=== PATIENT | female | born 1950 | race Caucasian/White ===

== ENCOUNTER → 2017-02-24 | Outpatient (CLI) | payer MEDICARE, OTHER ==
[~2017-02-24] MED LIST: AMLODIPINE-OLM1 EACH PO; LIPITOR40 MG PO; LISINOPRIL 5MG T5 MG PO; MELOXICAM15 MG PO; TYLENOL ES500 MG PO
--- NOTE | 2017-02-24 16:42 | RADIOLOGY REPORT PS360 ---
BONE DENSITOMETRY(HIP:LT SPINE HISTORY: POST MENOPAUSAL ORDERING PHYSICIAN: Pily Kearney MD PATIENT AGE: 66 years COMPARISON: 08/28/2010 FINDINGS: The BMD measured at the right femoral neck is 0.696 g/cm squared with a T score of -2.5. This is considered osteoporotic according to the World Health Organization criteria. Fracture risk is high. Pharmacological treatment recommended. IMPRESSION: Osteoporosis of the right hip. The been density of the hips has decreased by 15% compared to 08/28/2010. Recommend follow-up exam February 2018 to monitor response to treatment
--- NOTE | 2017-02-26 07:12 | RADIOLOGY REPORT PS360 ---
EXAM: CT LUNG LOW DOSE WO CONTRAST COMPARISON: None HISTORY: 66 year old female with greater than 30 pack-year smoking history asymptomatic ORDERING PHYSICIAN: Pily Kearney MD PATIENT AGE: 66 years TECHNIQUE: The exam was performed on a GE Light Speed [address] scanner using 2.95 mGy CTDI. A low dose helical CT CHEST was performed on a multi-detector scanner The LDCT was performed in a facility that meets the criteria for the screening program. Data regarding this exam was submitted to ACR which is an approved registry. The order for this exam indicates that it came as a result of a lung cancer screening counseling shard decision-making visit that included all the elements required of such a visit including smoking cessation. The radiologist interpreting this exam meets the [facility] criteria for the LDCT lung cancer screening program. The exam is reported using the Lung-RADS classification scale and reported to the ACR registry. NOTE: This study was performed for the specific purposes of lung cancer screening and is not an alternative to diagnostic chest CT. RADIATION DOSE: CTDI vol(CT dose Index-volume) = 2.95mG DLP (Dose Length Product) = 112.71 mGcm FINDINGS: 6 mm peribronchial nodule and a 5 mm peribronchial nodule along either 4 and millimeter peribronchial nodules in the right upper lobe centrally noncalcified. 6 mm noncalcified right lower lobe nodule posteriorly 7 mm noncalcified nodule left lower lobe. 3 mm noncalcified nodule left lower lobe laterally. Subpleural nodular density left upper lobe anteriorly 7 mm Centrilobular emphysematous changes with obstructive chronic bronchitis. Mild atelectatic or fibrotic changes in the lung bases with hyperinflation. OTHER FINDINGS: Coronary artery calcifications. Old granulomatous disease. Scattered small nodes in the axilla IMPRESSION: 1. Lung RADS Category: 3 probably benign, 2. Other findings: Centrilobular emphysema with obstructive chronic bronchitis Coronary artery disease RECOMMENDATIONS: 6 monthd LDCT follow-up
--- NOTE | 2017-03-02 12:20 | RADIOLOGY REPORT PS360 ---
DIG MAMM-SCREEN ASIF W/CAD CAD Screening COMPARISON: Digital mammograms 04/18/2012 and 08/28/2013 INDICATION: There is no personal or family history of breast cancer TECHNIQUE: Standard CC and MLO images were obtained. R2 CAD reviewed. FINDINGS: Moderate scattered fibroglandular densities are seen in both breast. There are few benign-appearing calcifications in each breast. There is no new or suspicious lesion in either breast and there are no suspicious microcalcifications. IMPRESSION: Fibrofatty parenchyma no suspicious lesion seen recommend yearly follow-up BI-RADS CATEGORY: 2_Benign RECOMMENDED FOLLOWUP: 12M 12 MONTH FOLLOW-UP (A letter has been sent to the patient regarding results of the study.)
== END ==
LOC: RAD 14:25
DX: Z87.891 Personal history of nicotine dependence (principal); F17.200 Nicotine dependence, unspecified, uncomplicated; Z12.2 Encounter for screening for malignant neoplasm of respiratory organs; Z12.31 Encounter for screening mammogram for malignant neoplasm of breast; Z78.0 Asymptomatic menopausal state; Z13.820 Encounter for screening for osteoporosis
CPT/HCPCS: G0202; G0297

== ENCOUNTER → 2017-09-05 | Outpatient (CLI) | payer MEDICARE, OTHER ==
--- NOTE | 2017-09-07 07:22 | RADIOLOGY REPORT PS360 ---
EXAM: CT LUNG LOW DOSE WO CONTRAST COMPARISON: None HISTORY: 67 year old female asymptomatic with greater than 30 pack-year smoking history, follow-up abnormal LDCT, follow-up pulmonary nodule ORDERING PHYSICIAN: Stepan Rodriguez MD PATIENT AGE: 67 years TECHNIQUE: The exam was performed on a GE Light Speed [address] scanner using 2.95 mGy CTDI. A low dose helical CT CHEST was performed on a multi-detector scanner The LDCT was performed in a facility that meets the criteria for the screening program. Data regarding this exam was submitted to ACR which is an approved registry. The order for this exam indicates that it came as a result of a lung cancer screening counseling shard decision-making visit that included all the elements required of such a visit including smoking cessation. The radiologist interpreting this exam meets the [facility] criteria for the LDCT lung cancer screening program. The exam is reported using the Lung-RADS classification scale and reported to the ACR registry. NOTE: This study was performed for the specific purposes of lung cancer screening and is not an alternative to diagnostic chest CT. RADIATION DOSE: CTDI vol(CT dose Index-volume) = 2.95mG DLP (Dose Length Product) = 111.6 mGcm FINDINGS: There are centrilobular emphysematous changes with hyperinflation and hyperattenuation of the peripheral pulmonary vessels consistent with obstructive chronic bronchitis. The previously described nodules in the central aspect of the right upper lobe are not significantly changed. A small cluster of nodules in this region the largest at 6 mm. 5 mm superior segment right lower lobe unchanged. Fissural nodule in the major fissure on the right unchanged. Semisolid 6 to 7 mm nodule in the left lower lobe unchanged No new nodules are evident. No infiltrates or effusions. Coronary artery calcifications are present. There is mild bronchial thickening. IMPRESSION: 1. Lung RADS Category: 3, probably benign 2. Other findings: Emphysema with obstructive chronic bronchitis and coronary artery disease RECOMMENDATIONS: 12-month LDCT follow-up
== END ==
LOC: RAD 08-30 13:00
DX: R91.1 Solitary pulmonary nodule (principal); Z87.891 Personal history of nicotine dependence; Z12.2 Encounter for screening for malignant neoplasm of respiratory organs; F17.200 Nicotine dependence, unspecified, uncomplicated
CPT/HCPCS: G0297

== ENCOUNTER 2017-09-24 11:41 | Inpatient (IN) | payer MEDICARE, OTHER ==
[~2017-09-24] VITALS: Ht 157.5 cm; Wt 63.6 kg
[2017-09-24 11:42] VITALS: BP 146/77
--- NOTE | 2017-09-24 11:49 | Emergency Room Report ---
History of Present Illness Time Seen by MD Brantley Presenting Problem in Triage Pt arrived: Presenting Problem: Onset of symptoms date/time:/ or onset unknown for: Treatment Prior to Arrival: F[employer] TE[employer] Provided by: Sepsis Risk Assessment: Temp: B/P: MAP: Pulse: Resp: Recent fever? Clinical Suspician of Infection? Mental Status: Sepsis Risk: Have you (or family members/close friends) recently traveled outside the [place]? If Yes, where/when: Have you had exposure to infectious disease within the past month? TB? Other? 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 Arrives via EMS with shortened and rotated hip, having received Fentanyl per EMS per their pain management protocol. She denies numbness. No back pain. Neg LOC. No neck pain. Denies prior hip intervention or injury. ALLERGIES Coded Allergies: No Known Allergies (09/24/17) Home Medications Reported Medications Atorvastatin Calcium (Atorvastatin) 40 MG PO DAILY Meloxicam (Meloxicam 15MG) 15 MG PO DAILY Acetaminophen (Tylenol XS 500MG) 500 MG PO Q6HP PRN PAIN Amlodipine Bes/Olmesartan Med (Amlodipine-Olmesartan 5-20 MG) 1 EACH PO DAILY History Medical History General CAD? No Angina: No MS: No Hypertension? Yes Hyperlipidemia? Yes CHF? No DVT? No PE? No COPD? No Asthma? No Anemia? No GERD? No Gastric ulcers? No GI Bleed? No Hernia? No Thyroid Problems? No Hypothyroidism? No CVA? No Seizures? No Diabetes? No Renal Insuffiency? No End Stage Renal Disease? No UTI? No Stones? No BPH? No GB Disease: No Nephritic Syndrome? No Asplenia? No Hepatitis? No Sickle Cell Disease? No Arthritis? No Migraines? No Cataracts? No Glaucoma? No MRSA? No HIV? No TB? No Anxiety? No Depression? No Cancer? No More? No Surgical Hx Previous Surgery?Y DISCECTOMY 1993 TUBAL CARPAL TUNNEL Review of Systems All Other Systems Reviewed and Negative Musculoskeletal see HPI Physical Exam Vital Signs Vital Signs Date Time Temp Pulse Resp B/P Pulse O2 O2 Flow FiO2 Ox Delivery Rate 09/24 1201 16 09/24 1142 97.7 83 16 146/77 98 General Appearance normal appearance, WD/WN, no apparent distress Eye Exam - bilateral eye normal exam, bilateral eye PERRL, bilateral eye EOMI Neck normal inspection, non-tender, supple, full range of motion Respiratory Status Yes: trachea midline, chest symmetrical, non tender chest. No: respiratory distress, tender on palpation, use of accessory muscles, pain on inspiration, pain on expiration. Lung Sounds bilateral: normal breath sounds, lungs clear. Cardiovascular normal exam, regular rate/rhythm, no peripheral edema, no gallop, no JVD, no murmur, no rub, normal peripheral pulses Peripheral Pulses Pulses normal Yes Gastrointestinal normal bowel sounds, normal exam, non tender, soft, no organomegaly, no pulsatile mass, no guarding, no rebound Back no vertebral tenderness, bowel/bladder continent Extremities limited range of motion, pain over left hip with palpation; LLE visible shortened and internally rotate with limited ROM due to pain. Pelvis stable to palpation w/o crepitus, deformity, or stepoffs noted. FROM B knees, ankles, toes; limbs well perfused and sensory exam intact. Full pedal pulses and brisk CR. Left foot slightly cold but pink, and patient brought in on a very chilly day. Neurologic alert, oriented x 3 (no sensory deficits), limited ROM left hip due to left hip injury Glascow Coma Scale Glascow Coma Scale Response Value EYE response: 4 Spontaneously 4 MOTOR response: 6 OBEYS 6 VERBAL response: 5 Oriented & Converses 5 Total 15 Skin intact, normal color, warm/dry Medical Decision Making LABS/Meds/Orders Pt receiving controlled substance in ED? No (received Fentanyl per EMS) Results/Orders Laboratory Tests 09/24/17 1230: Sodium 137, Potassium 4.2, Chloride 103, Carbon Dioxide 27, BUN 9, Creatinine 0.6, Estimated Creat Clear 87, Estimated GFR (MDRD) 99, Glucose 101, Calcium 8.8 , Total Bilirubin 0.3, AST 12 L, ALT 14, Alkaline Phosphatase 84, Total Protein 6.2 L, Albumin 3.1 L, Globulin 3.1, Albumin/Globulin Ratio 1.0 L, WBC 6.9, RBC 3.93 L, Hgb 11.9 L, Hct 37.7, MCV 95.9, RDW 13.4, Plt Count 204, MPV 7.5, Gran % 77.6, Gran # 5.3, Lymphocytes % 16.9, Monocytes % 4.0, Eosinophils % 1.3, Basophils % 0.2, Lymphocytes # 1.2, Monocytes # 0.3, Eosinophils # 0.1, Basophils # 0.0, PUBS MCHC 31.9, MCH 30.6 09/24/17 1210: Urine Color YELLOW, Urine Appearance CLEAR, Urine pH 6.5, Ur Specific [place] 1.010, Urine Protein NEGATIVE, Urine Ketones NEGATIVE, Urine Blood NEGATIVE, Urine Nitrate NEGATIVE, Urine Bilirubin NEGATIVE, Urine Urobilinogen 0.2, Ur Leukocyte Esterase NEGATIVE, Urine WBC OCC, Ur Squamous Epith Cells OCC, Urine Bacteria TRACE, Urine Glucose NEGATIVE Current Medication Orders Sig/Amy Start time Last Medication Dose Route Stop Time Status Admin Hydromorphone HCl 1 MG ONCE ONE 09/24 1200 DC 09/24 IV 09/24 120 1201 Hydromorphone HCl 0 .STK-MED ONE 09/24 1200 DC .ROUTE Ondansetron HCl 4 MG ONCE ONE 09/24 1200 DC 09/24 IV 09/24 1201 1201 Ondansetron HCl 0 .STK-MED ONE 09/24 1200 DC .ROUTE Sodium Chloride 10 ML PRN PRN 09/24 1200 AC IV 09/25 1150 Orders Procedure Date/time Status Decision to admit 09/24 1239 Active IV SALINE LOCK 09/24 1151 Active URINARY CATHETER INSERT 09/24 1151 Active URINALYSIS/COMPLETE 09/24 1151 Complete CBC WITH AUTO DIFF 09/24 1151 Complete CHEM 12 PROFILE 09/24 1151 Complete XRAY/CT/US XRAY/CT/US XRAY hip XR interpretation by reviewed by me Xray Results abnormal, L intertrochanteric fx Consult MD Physician Consult 1 Consult/PCP Dr. Axel lópez to consult; admit to PCP Time Called 1217 Reason Orthopedic eval/care Physician Consult 2 Consult/PCP Dr. Caio lópezay to admit with ortho consultation; family and pt agree Time Called [address] Kearney is the patient's PCP. body recall instructor paged. Departure Departure Time of Disposition 1236 Disposition Still a Patient Clinical Impression Primary Impression: Closed left hip fracture Qualifiers: Encounter type: initial encounter Qualified Code: S72.002A - Fracture of unspecified part of neck of left femur, initial encounter for closed fracture Condition STABLE Referrals Pily Kearney MD (Family) ED Critical Care Critical Care No at [id number]
--- OUTSIDE RECORDS SUMMARY | 2017-09-24 11:50 | External Medical Summary Rpt | CCD ---
Author Author , MITALI JASMINE Address Unknown Phone [email or web address] Purpose Continuity of Care Document - through 2016 Problems Code Diagnosis DOS Provider Status M54.16 RADICULOPAT HY, LUMBAR REGION R07.9 CHEST PAIN, UNSPECIFIED Z78.0 ASYMPTOMATI C MENOPAUSAL STATE
--- OUTSIDE RECORDS SUMMARY | 2017-09-24 11:50 | External Medical Summary Rpt | CCD ---
Author Author , MITALI Organization [employer] Address Unknown Phone Immunization Name Date Rout CVX Reac Dose Comm Prov Is Faci e tion ent ider Refu lity Give sed n Infl 10-2 Intr 135 0.5 Hist D049 No D049 uenz 4-20 amus mL oric 01 01 a, 17 cula al High r Info rmat Dose ion - Sour ce Unsp ecif ied PPV2 05-0 Intr 33 0.5 Hist D049 No D049 3 2-20 amus mL oric 10 17 17 cula al r Info rmat ion - Sour ce Unsp ecif ied
--- OUTSIDE RECORDS SUMMARY | 2017-09-24 11:50 | External Medical Summary Rpt | CCD ---
Author Author [employer] Organization [employer] Address Unknown Phone Unavailable Purpose Continuity of Care Document - through 2016
--- OUTSIDE RECORDS SUMMARY | 2017-09-24 11:50 | External Medical Summary Rpt | CCD ---
Author Author , MITALI JASMINE Address Unknown Phone [email or web address] Purpose Continuity of Care Document - through 2016 Problems Code Diagnosis DOS Provider Status M54.16 RADICULOPAT HY, LUMBAR REGION R07.9 CHEST PAIN, UNSPECIFIED Z78.0 ASYMPTOMATI C MENOPAUSAL STATE
[2017-09-24 12:16] LABS: URINE BILIRUBIN - DIPSTICK NEGATIVE (NEG); URINE BLOOD NEGATIVE (NEG)
[2017-09-24 12:22] LABS: URINE SQUAMOUS CELLS OCC #/hpf (0-5)
--- OUTSIDE RECORDS SUMMARY | 2017-09-24 12:40 | External Medical Summary Rpt | CCD ---
Author Author , MITALI Organization [employer] Address Unknown Phone [email or web address] Immunization Name Date Rout CVX Reac Dose [...]
--- OUTSIDE RECORDS SUMMARY | 2017-09-24 12:40 | External Medical Summary Rpt | CCD ---
Author Author , MITALI JASMINE Address Unknown Phone [email or web address] Purpose Continuity of Care Document - 09-24-2017 through 2016 Problems Code Diagnosis DOS Provider Status M54.16 RADICULOPAT HY, LUMBAR REGION R07.9 CHEST PAIN, UNSPECIFIED Z78.0 ASYMPTOMATI C MENOPAUSAL STATE Results Labs Lab Lab Date Result Refere Interp Status Commen Order Detail nces retati t Range on Urinalysis with microscopy (09-24-2017 12:10) Urine CLEAR CLEAR complet appeara 017 CLEAR L ed nce 12:10 determi nation Urine NEGATIV NEG complet total 017 E ed bilirub 12:10 NEGATIV in E L detecti on by test Urine NEGATIV NEG complet blood 017 E ed detecti 12:10 NEGATIV on E L Urine YELLOW YELLOW complet color 017 YELLOW ed 12:10 L Glucose = NEG complet ur 017 NEGATIV ed test 12:10 E strip Urine NEGATIV NEG complet ketones 017 E ed 12:10 NEGATIV detecti E L on by mg/dL automat ed jaswinder Mucus NEGATIV NEG complet detecti 017 E ed on in 12:10 NEGATIV urine E L sedimen t by lig Urine NEGATIV NEG complet nitrite 017 E ed 12:10 NEGATIV detecti E L on by test strip Urine = 6.5 5.0-8.5 complet pH 017 ed 12:10 Urine = NEG complet protein 017 NEGATIV ed 12:10 E mg/dL measure ment by automat ed t Urine = 1.010 1.005-1 complet specifi 017 .030 ed c 12:10 gravity measure ment [place] OCC OCC 0-5 complet s 017 L ed epithel 12:10 #/hpf ial cells detecti on in u Urine 0.2 0.2 NEG complet urobili 017 L ed nogen 12:10 E.U./dL detecti on by test str Urine = OCC O complet leukocy 017 wbc/hpf ed jaswinder 12:10 count (number /volume ) Bacteri TRACE O complet a 017 TRACE L ed detecti 12:10 on in urine sedimen t by
--- OUTSIDE RECORDS SUMMARY | 2017-09-24 12:40 | External Medical Summary Rpt | CCD ---
Author Author , MITALI JASMINE Address Unknown Phone [email or web address] Purpose Continuity of Care Document - 09-24-2017 [...]
[2017-09-24 12:45] LABS: LYMPH # 1.2 K/mm3 (0.7-4.5); LYMPH % 16.9 % (10-50.0)
[2017-09-24 12:46] LABS: HEMOGLOBIN 11.9 g/dL (12.2-16.2)
--- NOTE | 2017-09-24 13:03 | RADIOLOGY REPORT PS360 ---
HIP LT 2-3V W/PELVIS IF PERFOR COMPARISON: None HISTORY: Left hip pain after a fall TECHNIQUE: AP pelvis cone-down AP and crosstable lateral. FINDINGS: There is intratrochanteric fracture left hip with mild coxa vera angulation at the fracture site. There is underlying rather severe ostia 3 change of the hip joint with asymmetrical joint space narrowing and prominent osteophytic spurring of the acetabulum superiorly. Similar osteoarthritic changes are seen in the right hip. The SI joints and symphysis pubis per normal. IMPRESSION: Intratrochanteric fracture left hip as noted
[2017-09-24 13:46] VITALS: BP 149/72
--- NOTE | 2017-09-24 14:39 | RADIOLOGY REPORT PS360 ---
CHEST-PORTABLE COMPARISON: PA and lateral chest 08/28/2013 HISTORY: Preop, left hip fracture TECHNIQUE: Portable upright chest FINDINGS: The lung lugo are well expanded and appear clear of infiltrate. The cardiac silhouette and vascularity are normal and is no pleural fluid. There are mild degenerative changes of the thoracic spine. IMPRESSION: Grossly negative portable chest
--- NOTE | 2017-09-24 14:47 | HISTORY AND PHYSICAL REPORT ---
History and Physical ([facility]) Date of admission: 09/24/17 Chief complaint: Left hip fracture History: History of Present Illness: 67yo WF slipped and fell on rug at home suffiering injury to left hip. No precipitating chest pain , palpitations or syncope. No head injury or LOC. Was brought to ER by ambulance and xrays have confirmed an intertrochanteric fracture of the left hip. SHe has been admitted for orthopedic consultation. Past Medical History: Medical History: CAD? No Angina: No VT: No Hypertension? Yes Hyperlipidemia? Yes CHF? No DVT? No PE? No COPD? No Asthma? No Anemia? No GERD? No Gastric ulcers? No GI Bleed? No Hernia? No Thyroid Problems? No Hypothyroidism? No CVA? No Seizures? No Diabetes? No Renal Insuffiency? No UTI? No Stones? No BPH? No GB Disease: No Nephritic Syndrome? No Asplenia? No Hepatitis? No Sickle Cell Disease? No Arthritis? Yes Migraines? No Cataracts? No Glaucoma? No MRSA? No HIV? No TB? No Anxiety? No Depression? No Cancer? No More? No Additional medical history: Obstructive sleep apnea/ CPAP Surgical history: Previous Surgery?Y LUMBAR DISCECTOMY 1993 TUBAL CARPAL TUNNEL Lumbar facet injections Medications: Reported Medications Atorvastatin Calcium (Atorvastatin) 40 MG PO DAILY Meloxicam (Meloxicam 15MG) 15 MG PO DAILY Acetaminophen (Tylenol XS 500MG) 500 MG PO Q6HP PRN PAIN Amlodipine Bes/Olmesartan Med (Amlodipine-Olmesartan 5-20 MG) 1 EACH PO DAILY Allergies: Coded Allergies: No Known Allergies (09/24/17) Family History: Family history: Postive for: CAD (both parents). Negative for: DM, cancer, stroke. Social History: Smoking Hx Tobacco: Yes Smoker: Current Every Day Smoker Type: Cigarettes Packs/day: < 1 Pack Are you exposed to second hand No Alcohol: Alcohol: No Hx of Drug Use: Drug Use? No Patien't marital status is: Patient's support system is: excellent Review of Systems: Patient unresponsive? No Constitutional No: chills, recent weight loss. ENT No: hearing loss, nasal congestion, sinus problems. Cardiovascular No: chest pain, orthopnea, palpitations. Respiratory No: PND, hemoptysis, pleurisy, pneumonia. GI No: abdominal pain, constipation, diarrhea, hematemeis, hematochezia, melena, vomitting. (female) No: flank pain, frequency, urgency. Skin No: bruising, itching, rash. Neurological No: change in LOC, dizziness, gait problem, seizure, slurred speech, syncope. Immune/allergy No: hives, itching. Eyes No: blurry vision, diploplia, vision loss. Musculoskeletal No: extremity swelling, joint swelling. Heme No: bleeding, bruising. Endocrine No: cold intolerance, polydipsia. Psychiatric No: agitation, auditory hallucinations, change in mental status. Physical Exam: Vital signs: Laboratory Tests 09/24/17 1230: Sodium 137, Potassium 4.2, Chloride 103, Carbon Dioxide 27, BUN 9, Creatinine 0.6, Estimated Creat Clear 87, Estimated GFR (MDRD) 99, Glucose 101, Calcium 8.8 , Total Bilirubin 0.3, AST 12 L, ALT 14, Alkaline Phosphatase 84, Total Protein 6.2 L, Albumin 3.1 L, Globulin 3.1, Albumin/Globulin Ratio 1.0 L, WBC 6.9, RBC 3.93 L, Hgb 11.9 L, Hct 37.7, MCV 95.9, RDW 13.4, Plt Count 204, MPV 7.5, Gran % 77.6, Gran # 5.3, Lymphocytes % 16.9, Monocytes % 4.0, Eosinophils % 1.3, Basophils % 0.2, Lymphocytes # 1.2, Monocytes # 0.3, Eosinophils # 0.1, Basophils # 0.0, PUBS MCHC 31.9, MCH 30.6 09/24/17 1210: Urine Color YELLOW, Urine Appearance CLEAR, Urine pH 6.5, Ur Specific [place] 1.010, Urine Protein NEGATIVE, Urine Ketones NEGATIVE, Urine Blood NEGATIVE, Urine Nitrate NEGATIVE, Urine Bilirubin NEGATIVE, Urine Urobilinogen 0.2, Ur Leukocyte Esterase NEGATIVE, Urine WBC OCC, Ur Squamous Epith Cells OCC, Urine Bacteria TRACE, Urine Glucose NEGATIVE 1ST Vital Signs Result Date Time Pulse Ox 98 09/24 1142 B/P 146/77 09/24 1142 Temp 97.7 09/24 1142 Pulse 83 09/24 1142 Resp 16 09/24 1142 O2 Delivery ROOM AIR 09/24 1346 Exam: General appearance: alert, uncomfortable due to pain Eyes: anicteric, conjunctiva clear, pupils reactive to light ENT: mucous membranes moist, pharynx normal Neck: no carotid bruit, supple, no adenopathy Cardiovascular: regular rate & rhythm, no murmur Respiratory: caorse BS, no rales or wheezes ABD: non-distended, soft, no tenderness Extremities: no peripheral edema, left hip internally rotated and tender to palpation Skin: dry, normal color, warm Neuro: alert, chemistry account manager II-XII nml as tested, no deficit, normal mood/affect, oriented, speech clear Lab data: Labs: Laboratory Tests 09/24/17 1230: Sodium 137, Potassium 4.2, Chloride 103, Carbon Dioxide 27, BUN 9, Creatinine 0.6, Estimated Creat Clear 87, Estimated GFR (MDRD) 99, Glucose 101, Calcium 8.8 , Total Bilirubin 0.3, AST 12 L, ALT 14, Alkaline Phosphatase 84, Total Protein 6.2 L, Albumin 3.1 L, Globulin 3.1, Albumin/Globulin Ratio 1.0 L, WBC 6.9, RBC 3.93 L, Hgb 11.9 L, Hct 37.7, MCV 95.9, RDW 13.4, Plt Count 204, MPV 7.5, Gran % 77.6, Gran # 5.3, Lymphocytes % 16.9, Monocytes % 4.0, Eosinophils % 1.3, Basophils % 0.2, Lymphocytes # 1.2, Monocytes # 0.3, Eosinophils # 0.1, Basophils # 0.0, PUBS MCHC 31.9, MCH 30.6 09/24/17 1210: Urine Color YELLOW, Urine Appearance CLEAR, Urine pH 6.5, Ur Specific [place] 1.010, Urine Protein NEGATIVE, Urine Ketones NEGATIVE, Urine Blood NEGATIVE, Urine Nitrate NEGATIVE, Urine Bilirubin NEGATIVE, Urine Urobilinogen 0.2, Ur Leukocyte Esterase NEGATIVE, Urine WBC OCC, Ur Squamous Epith Cells OCC, Urine Bacteria TRACE, Urine Glucose NEGATIVE Radiology results: Results: HIP LT 2-3V W/PELVIS IF PERFOR IMPRESSION: Intratrochanteric fracture left hip as noted CHEST-PORTABLE IMPRESSION: Grossly negative portable chest Diagnosis(es): 1. Intertrochanteric fracture of left hip 2. Hypertension 3. COPD (chronic obstructive pulmonary disease) 4. Tobacco use disorder 5. Hyperlipidemia 6. Degenerative disc disease, lumbar 7. BART on CPAP Plan: SHe is admitted for orthopedic consultation. Dr. Reyna has been contacted. I have reviewed her labs, xrays and EKG and find she is an acceptable medical risk to proceed with surgery. at 0469
--- NOTE | 2017-09-24 15:13 | CONSULT NOTE ---
Consultation findings: Referring physician: Dr. Kearney Date of examination: 09/24/17 Time of examination: 1510 Exam findings: Chief complaint: Left hip pain after mechanical fall History of Present Illness: Patient is a 67-year-old female admitted to the acute service today from the ER with a diagnosis of a left hip fracture after a fall at home earlier in the day. Multiple members of her family are with the patient in the room. Patient states that she slipped and fell on rug at home sustaining injury to the left hip. She was unable to get up and walk after the fall. Patient denies any dizziness, headache, chest or neck pain. She denies loss of consciousness, chest pain and shortness of breath. She lives with her . She normally walks independently and does not use any walking aids. She has history of low back pain and bilateral hip pain. She says she has had injections into her lower back couple of months ago which also relieved her hip pain to some extent. She says she previously did not have any x-rays of her hip joints. She says she is in a lot of pain and any movements of the left leg worsen her pain. Her past medical history includes hypertension, hyperlipidemia, COPD and chronic low back pain. She is a chronic smoker. Reviewed past medical history, home medication, immunization, social history, family history, lab results and ALLERGIES. Past Medical History: Medical History: CAD? No Angina: No CA: No Hypertension? Yes Hyperlipidemia? Yes CHF? No DVT? No PE? No COPD? No Asthma? No Anemia? No GERD? No Gastric ulcers? No GI Bleed? No Hernia? No Thyroid Problems? No Hypothyroidism? No CVA? No Seizures? No Diabetes? No Renal Insuffiency? No UTI? No Stones? No BPH? No GB Disease: No Nephritic Syndrome? No Asplenia? No Hepatitis? No Sickle Cell Disease? No Arthritis? No Migraines? No Cataracts? No Glaucoma? No MRSA? No HIV? No TB? No Anxiety? No Depression? No Cancer? No More? No Surgical history: Previous Surgery?Y DISCECTOMY 1993 TUBAL CARPAL TUNNEL Medications: Reported Medications Atorvastatin Calcium (Atorvastatin) 40 MG PO DAILY Meloxicam (Meloxicam 15MG) 15 MG PO DAILY Acetaminophen (Tylenol XS 500MG) 500 MG PO Q6HP PRN PAIN Amlodipine Bes/Olmesartan Med (Amlodipine-Olmesartan 5-20 MG) 1 EACH PO DAILY Allergies: Coded Allergies: No Known Allergies (09/24/17) Social History: Smoking Hx Tobacco: Yes Smoker: Current Every Day Smoker Type: Cigarettes Packs/day: < 1 Pack Are you exposed to second hand No Alcohol: Alcohol: No Hx of Drug Use: Drug Use? No Patien't marital status is: Patient's support system is: excellent Review of Systems: Patient unresponsive? No Constitutional No: chills, recent weight loss. ENT No: hearing loss, nasal congestion, sinus problems. Cardiovascular No: chest pain, orthopnea, palpitations. Respiratory No: PND, hemoptysis, pleurisy, pneumonia. GI No: abdominal pain, constipation, diarrhea, hematemeis, hematochezia, melena, vomitting. (female) No: flank pain, frequency, urgency. Skin No: bruising, itching, rash. Neurological No: change in LOC, dizziness, gait problem, seizure, slurred speech, syncope. Immune/allergy No: hives, itching. Eyes No: blurry vision, diploplia, vision loss. Musculoskeletal No: extremity swelling, joint swelling. Heme No: bleeding, bruising. Endocrine No: cold intolerance, polydipsia. Psychiatric No: agitation, auditory hallucinations, change in mental status. 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 On examination of the left hip the skin is normal. No rashes or lesions noted. She is tender over the left hip. Any attempted movements of the left hip are painful. Thigh and calf are soft and nontender. Dorsalis pedis and posterior tibial pulses are palpable 1+ bilaterally. Sensation is grossly intact. She has good range of foot, ankle and toe movements. On examination of right hip she is tender over the hip joint anteriorly and hip movements are painful and limited. No other injuries noted Imaging: X-rays of her pelvis AP view, left hip AP and lateral views are showing a comminuted, displaced, unstable intertrochanteric fracture of the left proximal femur. Both hip joints are showing advanced degenerative changes. Labs: Laboratory Tests 09/24/17 1230: Sodium 137, Potassium 4.2, Chloride 103, Carbon Dioxide 27, BUN 9, Creatinine 0.6, Estimated Creat Clear 87, Estimated GFR (MDRD) 99, Glucose 101, Calcium 8.8 , Total Bilirubin 0.3, AST 12 L, ALT 14, Alkaline Phosphatase 84, Total Protein 6.2 L, Albumin 3.1 L, Globulin 3.1, Albumin/Globulin Ratio 1.0 L, WBC 6.9, RBC 3.93 L, Hgb 11.9 L, Hct 37.7, MCV 95.9, RDW 13.4, Plt Count 204, MPV 7.5, Gran % 77.6, Gran # 5.3, Lymphocytes % 16.9, Monocytes % 4.0, Eosinophils % 1.3, Basophils % 0.2, Lymphocytes # 1.2, Monocytes # 0.3, Eosinophils # 0.1, Basophils # 0.0, PUBS MCHC 31.9, MCH 30.6 09/24/17 1210: Urine Color YELLOW, Urine Appearance CLEAR, Urine pH 6.5, Ur Specific [place] 1.010, Urine Protein NEGATIVE, Urine Ketones NEGATIVE, Urine Blood NEGATIVE, Urine Nitrate NEGATIVE, Urine Bilirubin NEGATIVE, Urine Urobilinogen 0.2, Ur Leukocyte Esterase NEGATIVE, Urine WBC OCC, Ur Squamous Epith Cells OCC, Urine Bacteria TRACE, Urine Glucose NEGATIVE Impression: 1. Closed, comminuted, displaced intertrochanteric fracture Left femur-acute 2. Hypertension 3. COPD (chronic obstructive pulmonary disease) 4. Tobacco use disorder 5. Hyperlipidemia 6. Degenerative disc disease, lumbar 7. BART on CPAP 8. Advanced Osteoarthritis, both hip joints Recommendations: I reviewed the clinical and imaging findings with the patient and her family who were with the patient in the room. I have discussed the diagnosis and management options in detail including both nonsurgical and surgical. I have recommended surgical remediation in the form of a femoral nailing (cephalo-medullary nailing ). I explained the procedure, risks and benefits, alternatives and the expected postoperative course and outcome. I explained to the patient and her family the type of the fracture and the proposed surgical procedure using copies of the x- rays, pictures from the Internet and drawings. The complications discussed include but are not limited to infection, bleeding, injury to nerves and blood vessels, DVT, PE, screw cut-out/implant failure, loss of fixation, nonunion, malunion/malrotation, osteonecrosis of the femoral head, femoral shaft fracture, painful hardware, heterotopic ossification, stiffness, weakness, incomplete relief of pain, incomplete return of function or motion and the likely need for further surgery in future, and anesthetic/medical complications including heart attack, stroke, transfusion reaction or . We discussed how any of these events can be devastating. I've explained that the patient is at a significant surgical risk due to her age, cardiac and other medical issues, and fragility of the bone. Family and patient seemed to understand and accept these risks. We have discussed nonsurgical alternatives as well. The nonoperative management would essentially consist of prolonged bed rest and traction (skeletal/skin) in bed and pain medication and has exceptionally poor outcome. This could result in nonunion and malunion of the fracture and almost certainly, the patient has a very high risk of decubitus ulcers, UTI, respiratory tract infections, DVT/PE and other complications from being bedridden. I have explained to them that the standard of care for this sort of injuries is surgical throughout the country unless the patient is very ill for surgical management. We also discussed the postoperative course including the rehab and physical therapy required. She was fairly active and mobile independently prior to the injury but may need short- term placement in a correction facility for rehab after surgery. She also has advanced osteoarthritis in both hip joints and most likely would need treatment and possibly total hip arthroplasty at a later date. All their questions were answered and they verbalized a good understanding. She was cleared for surgery per Dr. Kearney. Well also obtain a preoperative anesthetic evaluation. I have recommended- Strange's traction left lower extremity with 5 pounds weight Full length x-ray left femur Type and screen Nothing by mouth from midnight Continue IV fluids Analgesia as needed Consent patient for a cephalo-medullary nailing Left hip. Order 2 g of IV Ancef for preoperative prophylaxis to start half an hour before surgery I am planning to take her for surgery at the earliest opportunity tomorrow. Continue medical management as per Dr. Kearney. Thank you for the opportunity to take part in the care of this very pleasant patient. at 0736 anesthetic evaluation. I have recommended- Strange's traction left lower extremity with 5 pounds weight Full length x-ray left femur Type and screen Nothing by mouth from midnight Continue IV fluids Analgesia as needed Consent patient for a cephalo-medullary nailing Left hip. Order 2 g of IV Ancef for preoperative prophylaxis to start half an hour before surgery I am planning to take her for surgery at the earliest opportunity tomorrow. Continue medical management as per Dr. Kearney. Thank you for the opportunity to take part in the care of this very pleasant patient.
[2017-09-24 16:17] VITALS: BP 117/59
[2017-09-24 16:56] VITALS: BP 117/59
[2017-09-24 20:29] VITALS: BP 155/80
[2017-09-24 20:30] VITALS: BP 155/80
[2017-09-24 23:11] LABS: ABO BLOOD TYPE A; RH BLOOD TYPE POSITIVE
[2017-09-25] VITALS (13 sets, daily range): BP systolic 110–140; BP diastolic 54–78
[2017-09-25 06:20] LABS: LYMPH # 1.2 K/mm3 (0.7-4.5); LYMPH % 16.9 % (10-50.0)
[2017-09-25 06:25] LABS: HEMOGLOBIN 10.7 g/dL (12.2-16.2)
--- NOTE | 2017-09-25 08:34 | RADIOLOGY REPORT PS360 ---
FEMUR-LT-2 VIEWS COMPARISON: Left hip same date HISTORY: Left hip and left thigh pain after a fall TECHNIQUE: Portable AP and crosstable lateral views FINDINGS: The intratrochanteric fracture of the left hip is again noted. The femoral shaft is intact. There are minor joint changes of knee joint with joint space narrowing medially and laterally. The patella is intact and is no effusion. IMPRESSION: Grossly negative left femur distal to the hip joint
--- NOTE | 2017-09-25 08:55 | ACUTE CARE PROGRESS NOTE (QUA) ---
Progress Notes Subjective Date 09/25/17 Time 0852 Note Rested fairly well. No new complaints. Objective Findings Laboratory Tests 09/25/17 0555: Sodium 135 L, Potassium 4.4, Chloride 102, Carbon Dioxide 31, BUN 6 L, Creatinine 0.6, Estimated Creat Clear 89, Estimated GFR (MDRD) 99, Glucose 113 H, Calcium 8.3 L, WBC 6.9, RBC 3.34 L, Hgb 10.7 L, Hct 32.2 L, MCV 96.3, RDW 13.5, Plt Count 178, MPV 7.6, Gran % 76.8, Gran # 5.3, Lymphocytes % 16.9, Monocytes % 5.1, Eosinophils % 1.0, Basophils % 0.2, Lymphocytes # 1.2, Monocytes # 0.4, Eosinophils # 0.1, Basophils # 0.0, PUBS MCHC 33.1, MCH 31.9 H 09/24/17 1640: Antibody Screen NEGATIVE, Miscellaneous Test POSITIVE 09/24/17 1230: Sodium 137, Potassium 4.2, Chloride 103, Carbon Dioxide 27, BUN 9, Creatinine 0.6, Estimated Creat Clear 87, Estimated GFR (MDRD) 99, Glucose 101, Calcium 8.8 , Total Bilirubin 0.3, AST 12 L, ALT 14, Alkaline Phosphatase 84, Total Protein 6.2 L, Albumin 3.1 L, Globulin 3.1, Albumin/Globulin Ratio 1.0 L, PT 10.4, INR 0.96, APTT 24.3, WBC 6.9, RBC 3.93 L, Hgb 11.9 L, Hct 37.7, MCV 95.9, RDW 13.4, Plt Count 204, MPV 7.5, Gran % 77.6, Gran # 5.3, Lymphocytes % 16.9, Monocytes % 4.0, Eosinophils % 1.3, Basophils % 0.2, Lymphocytes # 1.2, Monocytes # 0.3, Eosinophils # 0.1, Basophils # 0.0, PUBS MCHC 31.9, MCH 30.6 09/24/17 1210: Urine Color YELLOW, Urine Appearance CLEAR, Urine pH 6.5, Ur Specific [place] 1.010, Urine Protein NEGATIVE, Urine Ketones NEGATIVE, Urine Blood NEGATIVE, Urine Nitrate NEGATIVE, Urine Bilirubin NEGATIVE, Urine Urobilinogen 0.2, Ur Leukocyte Esterase NEGATIVE, Urine WBC OCC, Ur Squamous Epith Cells OCC, Urine Bacteria TRACE, Urine Glucose NEGATIVE Last VS-Temp:98.1 B/P:121/78 Pulse:100 Resp:16 SaO2:94 ROOM AIR Last weight lbs:140 oz:4 K.617 Method:Bed Scales Exam General appearance: alert, appears comfortable Cardiovascular: regular rate & rhythm Respiratory: clear to auscultation ABD: soft, no tenderness Extremities: no peripheral edema Assessment/Plan Problem List 1. Intertrochanteric fracture of left hip 2. Hypertension 3. COPD (chronic obstructive pulmonary disease) 4. Tobacco use disorder 5. Hyperlipidemia 6. Degenerative disc disease, lumbar 7. BART on CPAP Plan: Scheduled for surgery at 11:00 today This inpt stay is expected to cross 2 MNs from start of care Yes at 0854
--- NOTE | 2017-09-25 15:44 | Anesthesia Record ---
Anesthesia Record Part I Total IV fluids: 1400 EBL (ml): 150 Urine Output: 300 B/P: 103/53 % SaO2: 94 Pulse: 86 Resps: 18 Temp: 97.0 Patient is: Drowsy, Mask O2, Stable Stable to PACU at: 1530 at 1546
--- NOTE | 2017-09-25 15:44 | Anesthesia Record ---
Anesthesia Record Part II Discharge time: 1600 Destination: Second Floor PACU nurse assessment review? Yes Patient is: Stable Anesthesia complications? No at [id number]
--- NOTE | 2017-09-25 21:34 | Operative Note ---
Procedure/Operative Record Date of Procedure: 09/25/17 Referring physician: Dr. Kearney Pre-op diagnosis: Closed, comminuted, displaced and unstable intertrochanteric fracture LEFT femur Post-op diagnosis: Closed, comminuted, displaced and unstable intertrochanteric fracture LEFT femur Procedure performed: Cephalo-medullary nailing LEFT femur with [place] Gamma 3 nailing system using the [employer] computer navigation Surgeon: Ryan Balderas MD Top Lift Nailer(s): Roberta Lugo Anesthesia: General Indications: Patient is a 67-year-old female who suffered a LEFT intertrochanteric fracture following a mechanical fall at home yesterday. Following evaluation in the emergency room where imaging showed a displaced, comminuted and unstable intertrochanteric fracture of her LEFT proximal femur, she was admitted for further management. X-rays also showed advanced degenerative changes in both hip joints. I discussed the diagnosis , natural history and management options in detail including both nonsurgical and surgical, with the patient and her family. She was mobile and independent prior to the injury and did not use any walking aids. She has history of low back pain and bilateral hip pain and has had steroid injections into her back in the past. After a detailed discussion with the patient and her family a decision was made to fix the LEFT hip intertrochanteric fracture internally with a cephalo-medullary nail. I discussed the procedure, alternatives, risks and benefits, postoperative recovery and rehabilitation and the expected outcomes. The complications discussed include but are not limited to DVT, PE, infection, bleeding, injury to nerves and blood vessels, screw cut-out/implant failure, loss of fixation, nonunion, malunion/ malrotation, osteonecrosis of the femoral head, femoral shaft fracture, painful hardware, heterotopic ossification, stiffness, weakness, incomplete relief of pain, incomplete return of function or motion and the likely need for further surgery in future, and anesthetic/medical complications including heart attack, stroke, transfusion reaction or . The patient and her family wished to proceed with the surgical remediation. The nonsurgical alternatives were discussed as well. Consent form was reviewed and signed by me. The limb was appropriately marked and initialed by me. Following appropriate preoperative workup and medical clearance, she was brought to the operating room for surgery. The surgery is indicated to reduce and stabilize the fracture, relieve pain and improve function. Findings: Comminuted, displaced and unstable intertrochanteric fracture LEFT proximal femur as noted on the preoperative x-rays. The fracture could not be reduced well by close manipulation and required an open reduction and cerclage wiring. It was then fixed in a stable fashion with a long cephalo-medullary nail. Bone quality was good. Description of procedure: Following appropriate preoperative workup, patient was brought to the operating room and a spinal anesthesia was administered. She was then positioned supine on the fracture table and all the bony prominences were appropriately padded. The LEFT foot was secured in the footplate and the footplate was attached to the fracture table. The RIGHT leg was placed out of the way in a leg jose. When screened under fluoroscopy, we noticed that the fracture is not appropriately reduced. Therefore, multiple attempts were made to reduce the fracture under fluoroscopic guidance after taking the foot out of the footplate. Given the stiffness of the hip with osteoarthritis and the unstable, comminuted fracture configuration, we could not get a satisfactory reduction at this stage. Therefore, we decided to proceed with the surgery and perform an open reduction of the fracture if required at the time of nail and lag screw insertion. The left foot was then secured back in the footplate to the fracture table. The LEFT hip and LEFT thigh were then prepped and draped in the usual sterile fashion. Administration of prophylactic antibiotics was confirmed with the anesthetic team. A preprocedure timeout was performed as per the hospital protocol. After marking the level of the greater and lesser trochanter and the fracture site on the skin under fluoroscopy, a skin incision was made proximal to the greater trochanter in line with the femoral shaft. The dissection was then carried through subcutaneous tissue. The tensor fascia muscle was split in line with the fibers. This provided access to the tip of the greater trochanter. Under fluoroscopic control the starting guidewire was placed appropriately and advanced into the distal fragment. Initial reaming was performed over this guidewire and the guidewire was exchanged for a long ball-tipped guidewire. The ball-tipped guidewire was passed across the fracture site into the distal fragment under fluoroscopic control. The position of the guidewire was confirmed in both AP and lateral views. Then sequential reaming was performed with flexible reamers over the guidewire up to 12.5 mm reamer. The required nail length was measured. A 130 degree angle, 11 mm diameter, long (360 mm) LEFT [place] Gamma 3 nail was selected. The selected nail was attached to the proximal jig and the nail was then inserted into the femur under fluoroscopic guidance. After seating the nail to the appropriate level, we noticed that the fracture is still not reduced satisfactorily. Therefore, I have decided to perform an open reduction and cerclage wiring to obtain a stable anatomical reduction. A 3 inch long lateral skin incision was made at the level of the lesser trochanter. The incision was deepened through subcutaneous tissue and then the fascia autumn was incised in line with the skin incision. The vastus lateralis muscle was split gaining access to the fracture site. I then reduced the fracture satisfactorily under direct vision and confirmed satisfactory reduction using the fluoroscopic control. The reduction was held with the reduction clamp. I then passed an 18-gauge steel wire around the femur at the level of the lesser trochanter. The wire was tightened appropriately making sure the fracture is still appropriately reduced. This gave us a very good and stable reduction. We then seated the nail to the appropriate level and proceeded to introduce the lag screw. We used the [employer] computer navigation system for placement of the lag screw. The lag screw sheath assembly was placed through the appropriate hole on the jig. The trocar was removed and a guide pin was placed into the femoral head under fluoroscopic control. After confirming satisfactory placement of the guidepin in both AP and lateral fluoroscopic views the length was measured. A 95 mm lag screw was then selected. Drilling was performed over the guidewire for the lag screw. The 95 mm lag screw was then introduced over the guidewire and advanced to an appropriate level. The lag screw was secured in place with the set screw. The guide pin and sheath were then removed. After final seating the lag screw, the tip apex distance was 11 mm. I then proceeded to perform the distal locking through the dynamic hole- we used the [employer] Gamma nail distal locking jig for this. After appropriately lining the drill sleeve and nail under fluoroscopic guidance, the drill sleeve was placed through the dynamic hole and a 1 cm skin incision was made. Through the drill sleeve the 4.3 mm drill was introduced and the drill hole made for the distal locking screw. The screw length was measured and a 5 mm x 45 mm cortical bone screw was introduced through the dynamic locking hole. The distal and proximal jigs were then removed and fluoroscopic screening was performed in both the AP and lateral views. The reduction and fixation were noted to be satisfactory and stable. Fluoroscopic images were obtained and stored for future reference. The wounds were washed out with normal saline and hemostasis was obtained with the diathermy cautery. The wounds were then closed in layers with the 0 Vicryl, 2-0 Vicryl and 4-0 Monocryl subcuticular sutures, Dermabond and Steri-Strips to the skin. 30 mL of 0.5 percent Marcaine was injected into the skin and subcutaneous tissue around the incisions for postoperative pain relief. Sterile dressings were applied. The LEFT foot was taken out of the foot jose and the RIGHT leg out of the leg jose and placed on the table extension. The limb lengths were noted to be equal and there was no rotational deformity. Dorsalis pedis and posterior tibial pulses were 1+ on both sides. At the end of the procedure, swab, needle and instrument counts were correct according to the scrub team. Patient was then transferred onto the bed. She was then transported to the PACU in a stable condition. Patient tolerated the procedure well and there were no immediate complications. Portable x-rays of LEFT hip AP and cross-table lateral views were obtained in the PACU and were noted to be satisfactory. Postoperatively she will have 3 further doses of prophylactic antibiotics, DVT prophylaxis as per protocol and IV and oral analgesia as needed. Medical management as per Dr. Tavares team. She can be mobilized on first postoperative day with a frame, weight bearing on the LEFT side as tolerated. EBL (ml): 150 Implant: [place] Gamma 3 long nailing system- 130 degree angle, 11 mm diameter, long (360 mm) LEFT [place] Gamma 3 nail, 10.5 mm x 95 mm lag screw and 5 mm x 45 mm distal locking screw. (Industry insurance account representative: Sabino Johnson from [facility]) Complications: None Specimens: None at [id number]
[2017-09-26] VITALS (7 sets, daily range): BP systolic 101–121; BP diastolic 48–54
--- NOTE | 2017-09-26 05:34 | RADIOLOGY REPORT PS360 ---
FEMUR-LT-2 VIEWS HISTORY: Follow-up hip fracture/ORIF POST-OP GAMMA NAIL ORDERING PHYSICIAN: Pily Kearney MD PATIENT AGE: 67 years COMPARISON: 09/24/2017 FINDINGS: There has been interval placement of a gamma nail stabilizing a comminuted intertrochanteric fracture with a long intramedullary daryn. There is postsurgical gas. There is good alignment of the fracture fragments with no evidence of orthopedic complication. Osteoarthritic changes are present in the left hip. IMPRESSION: Status post ORIF with gamma nail and long intramedullary daryn placement with good alignment of the left intertrochanteric hip fracture
--- NOTE | 2017-09-26 05:35 | RADIOLOGY REPORT PS360 ---
HIP LT 2-3V W/PELVIS IF PERFOR HISTORY: LT. HIP GAMMA NAIL ORDERING PHYSICIAN: Pily Kearney MD PATIENT AGE: 67 years FINDINGS: There has been interval placement of a gamma nail stabilizing a comminuted intertrochanteric fracture with a long intramedullary daryn. There is postsurgical gas. There is good alignment of the fracture fragments with no evidence of orthopedic complication. Osteoarthritic changes are present in the left hip. IMPRESSION: Status post ORIF with gamma nail and long intramedullary daryn placement with good alignment of the left intertrochanteric hip fracture
--- NOTE | 2017-09-26 05:35 | RADIOLOGY REPORT PS360 ---
HIP LT 2-3V W/PELVIS IF PERFOR HISTORY: POST-OP GAMMA NAIL ORDERING PHYSICIAN: Pily Kearney MD PATIENT AGE: 67 years COMPARISON: 09/24/2017 FINDINGS: There has been interval placement of a gamma nail stabilizing a comminuted intertrochanteric fracture with a long intramedullary daryn. There is postsurgical gas. There is good alignment of the fracture fragments with no evidence of orthopedic complication. Osteoarthritic changes are present in the left hip. IMPRESSION: Status post ORIF with gamma nail and long intramedullary daryn placement with good alignment of the left intertrochanteric hip fracture
[2017-09-26 07:31] LABS: LYMPH # 1.2 K/mm3 (0.7-4.5); LYMPH % 17.1 % (10-50.0)
[2017-09-26 07:33] LABS: HEMOGLOBIN 8.1 g/dL (12.2-16.2)
--- NOTE | 2017-09-26 08:42 | ACUTE CARE PROGRESS NOTE (QUA) ---
See Addendum Progress Notes Subjective Date 09/26/17 Time 0750 Note First PO day; patient states she did sleep some with pain med on board; hurts to move; Denies CP and SOB; is not hungry; no nausea or vomiting; Argueta in place; needs something for her bowels Objective Findings Laboratory Tests 09/26/17 0620: WBC 7.0, RBC 2.59 L, Hgb 8.1 L, Hct 24.5 L, MCV 94.5, RDW 13.5, Plt Count 175 , MPV 7.7, Gran % 76.8, Gran # 5.4, Lymphocytes % 17.1, Monocytes % 5.8, Eosinophils % 0.3, Basophils % 0.1, Lymphocytes # 1.2, Monocytes # 0.4, Eosinophils # 0.0, Basophils # 0.0, PUBS MCHC 33.3, MCH 31.5 H Vital Signs Date Time Temp Pulse Resp B/P Pulse O2 O2 Flow FiO2 Ox Delivery Rate 09/26 0550 16 09/26 0358 98.1 116 16 121/54 93 OXYGEN 2 09/26 0030 2 09/25 2310 16 09/25 2305 2 09/25 2300 97.9 94 16 128/62 97 2 09/25 2200 2 09/25 2200 98.2 95 16 119/54 95 2 09/25 2105 2 09/25 2100 98.4 104 16 134/56 95 2 09/25 2000 16 09/25 2000 99.6 100 16 123/62 96 2 09/25 1950 4 09/25 1930 96.7 101 16 118/61 96 4 09/25 1930 96.7 101 16 123/62 96 4 09/25 1845 4 09/25 1845 96.9 102 16 115/59 100 4 09/25 1815 4 09/25 1815 93.6 99 16 125/64 100 4 09/25 1815 93.6 99 16 125/64 100 4 09/25 1745 94.4 89 16 128/62 100 4 09/25 1715 92.7 80 16 110/61 96 4 09/25 1700 89.2 88 16 126/70 96 4 09/25 1654 4 09/25 1645 94.0 88 18 124/62 92 4 09/25 1645 94.0 83 18 118/59 91 4 09/25 1645 94.0 83 18 118/59 91 4 09/25 1634 18 09/25 1620 97.2 93 18 122/59 95 OXYGEN 09/25 1610 95 18 110/62 92 OXYGEN 09/25 1600 91 18 108/65 90 OXYGEN 09/25 1559 94 16 145/69 97 09/25 1555 00 00 000/00 00 09/25 1550 93 18 108/60 92 OXYGEN 09/25 1547 97.0 09/25 1543 97.0 86 18 103/53 09/25 1540 86 18 109/57 95 OXYGEN 09/25 1530 97.0 86 18 103/53 94 OXYGEN 09/25 1500 1 09/25 1137 1 09/25 0840 1 09/25 0840 98.1 100 16 121/78 94 1 Current Medications Cefazolin Sodium 1 GM Q8H IV Sodium Chloride 50 ML Enoxaparin Sodium 30 MG Q12 SC Cefazolin Sodium 1 GM Q8H IV (DC) Sodium Chloride 50 ML Hydrocodone Bitart/Acetaminophen 0 .STK-MED ONE PO (DC) Sodium Chloride 100 ML .STK-MED ONE IV (DC) Cefazolin Sodium 0 .STK-MED ONE .ROUTE (DC) Morphine Sulfate 0 .STK-MED ONE .ROUTE (DC) Hydrocodone Bitart/Acetaminophen 0 .STK-MED ONE PO (DC) Morphine Sulfate 0 .STK-MED ONE .ROUTE (DC) Cefazolin Sodium 1 GM Q8H IV (DC) Sodium Chloride 50 ML Lactated Ringer's 1,000 ML .[id number] IV Nicotine 21 MG DAILYP PRN TD Promethazine HCl 12.5 MG Q6HP PRN IV Senna/Docusate Sodium 1 TAB BIDP PRN PO Sodium Chloride 25 ML PRN PRN IV Lactated Ringer's 1,000 ML .Q25H IV (DC) Sevoflurane 0 .STK-MED ONE IN (DC) Cefazolin Sodium 0 .STK-MED ONE .ROUTE (DC) Fentanyl Citrate 0 .STK-MED ONE IV (DC) Bupivacaine HCl 0 .STK-MED ONE .ROUTE (DC) Cefazolin Sodium 2 GM ONCE ONE IV (DC) Sodium Chloride 100 ML Acetaminophen 1 ML .STK-MED ONE IV (DC) Dexamethasone Sodium Phosphate 0 .STK-MED ONE .ROUTE (DC) Fentanyl Citrate 0 .STK-MED ONE IV (DC) Lidocaine HCl 0 .STK-MED ONE IJ (DC) Ondansetron HCl 0 .STK-MED ONE .ROUTE (DC) Propofol 0 .STK-MED ONE IV (DC) Rocuronium Sublimity 0 .STK-MED ONE .ROUTE (DC) Amlodipine Besylate 5 MG DAILY PO Lisinopril 20 MG DAILY PO Hydrocodone Bitart/Acetaminophen 2 TAB Q4HP PRN PO Morphine Sulfate 4 MG Q4HP PRN IV Atorvastatin Calcium 40 MG QHS PO Hydrocodone Bitart/Acetaminophen 1 TAB Q4HP PRN PO Sodium Chloride 10 ML PRN PRN IV Ondansetron HCl 4 MG Q6HP PRN IV Sodium Chloride 1,000 ML .Q10H IV Temazepam 15 MG QHSP PRN PO Sodium Chloride 10 ML PRN PRN IV (DC) 09/25 1500 12 2300 12 0700 Intake Total 25 1227 Output Total 50 1300 Balance -25 -73 Intake, IV 25 1227 Intake, Oral 0 Intake, Tube 0 Irrigant Output, 0 Emesis Output, 0 Estimated Blood Loss Output, Other 0 Output, Urine 50 1300 Patient 140 lb Weight Last VS-Temp:98.1 B/P:121/54 Pulse:116 Resp:16 SaO2:93 OXYGEN Last weight lbs:140 oz:4 K.617 Method:Bed Scales Exam General appearance: alert, no acute distress, well-developed, well-nourished Cardiovascular: regular rate & rhythm Respiratory: clear to auscultation (bilat anterior and posterior), poor inspiratory effort ABD: non-distended, soft, no tenderness, no guarding, bowel sounds present Genitourinary: catheter in place Extremities: no peripheral edema, no calf tenderness, SCUD on RLE, left hip dressing clean and dry Neuro: alert, oriented, speech clear Assessment/Plan Problem List 1. Intertrochanteric fracture of left hip 2. Hypertension 3. COPD (chronic obstructive pulmonary disease) 4. Tobacco use disorder 5. Hyperlipidemia 6. Degenerative disc disease, lumbar 7. BART on CPAP Patient condition Stable Plan: pulmonary hygiene; use incentive spirometer q1-2 hours while awake; should be getting OOB today, give Senna today This inpt stay is expected to cross 2 MNs from start of care Yes at 0803
--- NOTE | 2017-09-26 13:08 | ACUTE CARE PROGRESS NOTE ---
Progress note Date: 09/26/17 Assessment: Subjective: Patient is a 67-year-old female, status post cephalo-medullary nailing LEFT hip, post op day #1. She is sitting out in a chair and appears comfortable. Says she is doing well and is eating and drinking well. She says her pain is well controlled with medication. No history of any fevers, chills or rigors. No history of any nausea, vomiting, chest pain or SOB. Her post transfusion H and H is 8.1/24.5. Objective: Vitals,I&O,and Labs: I reviewed her vital signs, lab results, medication, nursing notes, medical progress notes and also discussed with the nursing staff regarding her progress. Exam General appearance: Alert, awake, no acute distress ENT: dry mucous membranes Cardiovascular: regular rate & rhythm Respiratory: no respiratory distress, lungs clear to auscultation bilaterally ABD: soft and nontender. Bowel sounds heard over all 4 quadrants. Skin: no gross abnormalities Neuro: non-focal On examination of her LEFT lower extremity, the limb lengths are equal. The alignment is neutral. The dressings over the LEFT hip are clean, dry and intact. Attempted movements of the LEFT hip are painful. Distal neurovascular status is intact. Thigh and calf are soft and nontender. No clinical signs of DVT. Impression: 1. Intertrochanteric fracture of left hip 2. Hypertension 3. COPD (chronic obstructive pulmonary disease) 4. Tobacco use disorder 5. Hyperlipidemia 6. Degenerative disc disease, lumbar 7. BART on CPAP Plan: I reviewed the findings and procedure performed with the patient and her family. She is doing well and advised her to continue mobilization weightbearing as tolerated. Discontinue IV fluids when eating and drinking well. Discontinue Argueta catheter today. Continue PT/OT, pain management with as needed narcotic analgesics. Patient and family are keen for her to go back home with home health after discharge. Care management to look into discharge planning. From an orthopedic standpoint, she can be discharged home tomorrow if medically appropriate. Recommend DVT prophylaxis for 5 weeks postop- the appropriate agents include Lovenox, Aspirin 325 mg, Xarelto (Rivaroxaban), Eliquis (apixaban ) and Coumadin. Follow-up in my office in 2 weeks time with check x-ray. Medical management as per Dr. Tavares team. at [phone]
[2017-09-27 05:23] VITALS: BP 138/66
[2017-09-27 08:13] VITALS: BP 142/76
[2017-09-27 08:25] VITALS: BP 142/76
--- NOTE | 2017-09-27 08:54 | ACUTE CARE PROGRESS NOTE (QUA) ---
Progress Notes Subjective Date 09/27/17 Time 0745 Note Would like to go home today; worked with PT and was able to take a few steps; has all equipment at home; O2 sats did drop during the night and nasal O2 reapplied; her CPAP machine did not work; has voided without problems since Argueta removed; bowels have not moved; she has been able to eat Objective Findings Vital Signs Date Time Temp Pulse Resp B/P Pulse O2 O2 Flow FiO2 Ox Delivery Rate 09/27 825 98.2 105 20 142/76 93 2 09/27 813 98.2 105 20 142/76 93 OXYGEN 09/27 0637 2 09/27 0549 18 09/27 0523 2 09/27 0523 97.1 113 18 138/66 93 OXYGEN 2 09/27 0511 2 09/27 0258 2 09/27 0154 2 09/27 0131 18 09/26 2308 2 09/26 2201 2 09/26 2156 2 09/26 2009 2 09/26 2009 97.6 95 18 110/52 90 OXYGEN 2 09/26 1952 2 09/26 1952 98.1 104 20 101/50 90 2 09/26 1915 2 09/26 1830 20 09/26 1711 2 09/26 1607 98.1 104 20 101/50 90 OXYGEN 09/26 1426 16 09/26 1216 98.1 99 16 108/48 90 OXYGEN 09/26 1022 18 09/26 0915 98.6 101 18 102/48 91 Current Medications Hydrocodone Bitart/Acetaminophen 0 .STK-MED ONE PO (DC) Hydrocodone Bitart/Acetaminophen 0 .STK-MED ONE PO (DC) Hydrocodone Bitart/Acetaminophen 0 .STK-MED ONE PO (DC) Hydrocodone Bitart/Acetaminophen 0 .STK-MED ONE PO (DC) Cefazolin Sodium 1 GM Q8H IV (DC) Sodium Chloride 50 ML Senna/Docusate Sodium 0 .STK-MED ONE .ROUTE (DC) Hydrocodone Bitart/Acetaminophen 0 .STK-MED ONE PO (DC) Enoxaparin Sodium 30 MG Q12 SC Lactated Ringer's 1,000 ML .Q10H IV (DC) Nicotine 21 MG DAILYP PRN TD Promethazine HCl 12.5 MG Q6HP PRN IV Senna/Docusate Sodium 1 TAB BIDP PRN PO Sodium Chloride 25 ML PRN PRN IV Amlodipine Besylate 5 MG DAILY PO Lisinopril 20 MG DAILY PO Hydrocodone Bitart/Acetaminophen 2 TAB Q4HP PRN PO Morphine Sulfate 4 MG Q4HP PRN IV Atorvastatin Calcium 40 MG QHS PO Hydrocodone Bitart/Acetaminophen 1 TAB Q4HP PRN PO Sodium Chloride 10 ML PRN PRN IV Ondansetron HCl 4 MG Q6HP PRN IV Sodium Chloride 1,000 ML .Q10H IV (DC) Temazepam 15 MG QHSP PRN PO 09/26 1500 09/26 2300 09/27 0700 Intake Total 360 1032 Output Total 500 Balance -140 1032 Intake, IV 792 Intake, Oral 360 240 Output, Urine 500 Last VS-Temp:98.2 B/P:142/76 Pulse:105 Resp:20 SaO2:93 OXYGEN Last weight lbs:140 oz:4 K.617 Method:Bed Scales Exam General appearance: alert, no acute distress, awakened for exam Cardiovascular: regular rate & rhythm, premature beats Respiratory: decreased BS posteriorly ABD: non-distended, soft, no tenderness, bowel sounds present Extremities: no calf tenderness, no pedal edema Skin: left hip dressing clean and dry Neuro: alert, oriented, speech clear Assessment/Plan Problem List 1. Intertrochanteric fracture of left hip 2. Hypertension 3. COPD (chronic obstructive pulmonary disease) 4. Tobacco use disorder 5. Hyperlipidemia 6. Degenerative disc disease, lumbar 7. BART on CPAP Patient condition improved Plan: will check O2 on RA; probably home later today after seen by Dr. Reyna This inpt stay is expected to cross 2 MNs from start of care No (Diane Matute APRN) Subjective Date 09/27/17 Assessment/Plan Problem List 1. Intertrochanteric fracture of left hip 2. Hypertension 3. COPD (chronic obstructive pulmonary disease) 4. Tobacco use disorder 5. Hyperlipidemia 6. Degenerative disc disease, lumbar 7. BART on CPAP Plan: Pt seen and examined. She is eager to go home and will need home PT. Awaiting Dr. Reyna to make rounds and change her dressing then will arrange discharge. (Pily Kearney MD) at [phone] at [phone]
[2017-09-27] MEDS ORDERED: ASPIRIN 325MG325 MG PO (09:13)
[2017-09-27] MEDS ORDERED: HYDROCODONE BIT1 T44 PO (11:56)
[2017-09-27] MEDS ORDERED: FERROUS SULFAT200 M1 PO (11:58)
--- NOTE | 2017-09-27 12:00 | ACUTE CARE PROGRESS NOTE ---
Progress note Date: 09/27/17 Assessment: Subjective: Patient is a 67-year-old female, status post cephalo-medullary nailing LEFT hip, post op day #2. She is lying down in bed and appears comfortable. Says she is doing well and is eating and drinking well. Her pain is well controlled with medication. No history of any fevers, chills or rigors. No history of any nausea , vomiting, chest pain or SOB. She is planning to go home today with home health. Objective: Vitals,I&O,and Labs: I reviewed her vital signs, lab results, medication, nursing notes, medical progress notes and also discussed with the nursing staff regarding her progress. Vital Signs Result Date Time Resp 20 09/27 0957 O2 Flow Rate 2 09/27 0915 Pulse Ox 93 09/27 08 B/P 142/76 09/27 08 Temp 98.2 09/27 08 Pulse 105 09/27 0825 O2 Delivery OXYGEN 09/27 08 Exam General appearance: Alert, awake, no acute distress ENT: dry mucous membranes Cardiovascular: regular rate & rhythm Respiratory: no respiratory distress, lungs clear to auscultation bilaterally ABD: soft and nontender. Bowel sounds heard over all 4 quadrants. Skin: no gross abnormalities Neuro: non-focal On examination of her LEFT lower extremity, the limb lengths are equal. The alignment is neutral. The dressings over the LEFT hip are clean, dry and intact. We have changed the surgical dressings today and the incisions are healthy. There is no bleeding or discharge and no signs of any infection. Attempted movements of the LEFT hip are painful. Distal neurovascular status is intact. Thigh and calf are soft and nontender. No clinical signs of DVT. Impression: 1. Intertrochanteric fracture of left hip 2. Hypertension 3. COPD (chronic obstructive pulmonary disease) 4. Tobacco use disorder 5. Hyperlipidemia 6. Degenerative disc disease, lumbar 7. BART on CPAP Plan: I reviewed the findings and progress with the patient and her family. She is doing well and advised her to continue mobilization weightbearing as tolerated. Continue PT/OT, pain management with as needed narcotic analgesics. She can be discharged home with home health if appropriate from a medical standpoint. Recommend DVT prophylaxis for 5 weeks postop- the appropriate agents include Lovenox, Aspirin 325 mg, Xarelto (Rivaroxaban), Eliquis (apixaban) and Coumadin. I have also prescribed her ferrous sulfate 325 mg p.o. daily for 3 months. Follow-up in my office in 2 weeks time with check x-ray. Please feel free to call our office at [phone] for any orthopaedic questions. Medical management as per Dr. Tavares team.
[2017-09-27 13:15] VITALS: BP 142/76
--- NOTE | 2017-09-29 15:20 | DISCHARGE SUMMARY STANDARD ---
Discharge Summary ([facility]) Date of admission: 09/24/17 Date of discharge: 09/27/17 Problem List: 1. Intertrochanteric fracture of left hip 2. Hypertension 3. COPD (chronic obstructive pulmonary disease) 4. Tobacco use disorder 5. Hyperlipidemia 6. Degenerative disc disease, lumbar 7. BART on CPAP History of present illness: Ms. Rocha is a 67yo WF who slipped and fell on rug at home suffering injury to left hip. No precipitating chest pain , palpitations or syncope. No head injury or LOC. Was brought to ER by ambulance and xrays confirmed an intertrochanteric fracture of the left hip. She was admitted for orthopedic consultation. Exam on admission: General appearance: alert, uncomfortable due to pain Eyes: anicteric, conjunctiva clear, pupils reactive to light ENT: mucous membranes moist, pharynx normal Neck: no carotid bruit, supple, no adenopathy Cardiovascular: regular rate & rhythm, no murmur Respiratory: caorse BS, no rales or wheezes ABD: non-distended, soft, no tenderness Extremities: no peripheral edema, left hip internally rotated and tender to palpation Skin: dry, normal color, warm Neuro: alert, president [place] II-XII nml as tested, no deficit, normal mood/affect, oriented, speech clear Hospital Course: She was seen by Dr. Balderas who performed a cephalo-medullary nailing of the left hip. She tolerated the procedure well. Her pain was well controlled. She worked with PT and was able to take a few steps. She voided without problems once Argueta was removed. Dr. Balderas felt she could be discharged home and he recommended DVT prophylaxis for 5 weeks postop (Lovenox, Aspirin 325 mg, Xarelto (Rivaroxaban), Eliquis (apixaban) or Coumadin.) She was to mobilize weight bearing as tolerated and follow-up in his office in 2 weeks with a repeat x-ray. Discharge medications: Continue taking these medications: Atorvastatin Calcium (Atorvastatin) 40 MG TABLET 40 MILLIGRAM ORAL DAILY Meloxicam (Meloxicam 15MG) 15 MG TABLET 15 MILLIGRAM ORAL DAILY Acetaminophen (Tylenol XS 500MG) 500 MG TABLET 500 MILLIGRAM ORAL EVERY 6 HOURS NEEDED as needed for PAIN Amlodipine Bes/Olmesartan Med (Amlodipine-Olmesartan 5-20 MG) 1 EACH TABLET 1 EACH ORAL DAILY Start taking the following new medications: Ferrous Sulfate (Ferrous Sulfate) 325 MG TABLET 325 MILLIGRAM ORAL DAILY Qty = 90 No Refills ASPIRIN (Aspirin 325MG) 325 MG TABLET 325 MILLIGRAM ORAL DAILY Qty = 30 No Refills HYDROCODONE/ACETAMINOPHEN (Hydrocodon-Acetaminophen 5-325) 1 EACH TABLET 1-2 TABLET ORAL EVERY 6 HOURS NEEDED as needed for BREAKTHROUGH MOD TO SEV PAIN Qty = 30 No Refills Disposition: F/U with: BLAKE BALDERAS Follow up: 2 WEEKS Comments, Specifics r/t O2, Equipment, Antibiotics, etc: Physical therapy Care Management Consult for: HOME HEALTH Activity: Use assistive device Diet: No Added Salt Discharge to: HOME Agency needed? Y Specify: HOME HEALTH at [id number]
== END 2017-09-27 13:00 | disposition home health service (06) | DRG 482 ==
LOC: ER 11:41 → 2ND 12:38
PROVIDERS: Emergency Medicine; Orthopaedic Surgery
PROC: 0QS704Z Reposition Left Upper Femur with Internal Fixation Device, Open Approach (ICD-10-PCS; principal; 2017-09-25 11:00)
DX: S72.142A Displaced intertrochanteric fracture of left femur, initial encounter for closed fracture (principal); J44.9 Chronic obstructive pulmonary disease, unspecified; G47.33 Obstructive sleep apnea (adult) (pediatric); I10 Essential (primary) hypertension; W01.0XXA Fall on same level from slipping, tripping and stumbling without subsequent striking against object, initial encounter; Y92.019 Unspecified place in single-family (private) house as the place of occurrence of the external cause; Z72.0 Tobacco use; M51.36 Other intervertebral disc degeneration, lumbar region
CPT/HCPCS: C1713; C1769; C1776; J0131; J2405